=== PATIENT | male | born 1955 ===

== ENCOUNTER 2023-02-22 05:00 | Day surgery (SDC) | payer OTHER | END 2023-02-22 13:30 | disposition home or self-care (01) | LOC: AMB-ENDOS 05:00 | PROVIDERS: ATTEND Surgery | DX: K63.5 Polyp of colon (principal); K62.1 Rectal polyp; K57.30 Diverticulosis of large intestine without perforation or abscess without bleeding; D12.7 Benign neoplasm of rectosigmoid junction; Z20.822 Contact with and (suspected) exposure to COVID-19 ==

== ENCOUNTER 2024-12-10 08:00 | Outpatient (CLI) | payer OTHER ==
[~2024-12-10] VITALS: Ht 170.2 cm; Wt 66.7 kg
[2024-12-10 10:11] LABS: URINE APPEARANCE Clear; URINE BILIRRUBIN Negative (NEGATIVE); URINE BLOOD Negative; URINE COLOR Yellow; URINE GLUCOSE Negative (NEGATIVE); URINE KETONE Negative (NEGATIVE); URINE LEUKOCYTE Negative; URINE NITRATE Negative; URINE PROTEIN 30 (NEGATIVE); URINE UROBILINOGEN 0.2 E.U./dl
[2024-12-10 10:12] LABS: URINE EPITHELIAL CELLS 1.8 uL (0.0-38.8)
[2024-12-10 10:12] LABS: BASO % 0.4 % (0.1-1.2); EOS # 0.09 (0.04-0.54); EOS % 1.3 % (0.7-7.0); LYMPH # 0.87 (1.18-3.74); LYMPH % 13.0 % (19.3-53.1); MEAN PLATELET VOLUME 9.30 fl (9.4-12.4); MONO # 0.67 (0.24-0.82); MONO % 10.0 % (4.7-12.5); NEUT # 5.02 (1.56-6.13); NEUT % 74.9 % (34.0-71.1); RED CELL DISTRIBUTION WIDTH 12.8 % (11.6-14.4)
[2024-12-10 10:13] LABS: URINE BACTERIA 3.6 uL (0.0-1933); URINE CAST 0.29 uL (0.0-1.40); URINE RBC 1.4 uL (0.0-20.8); URINE WBC 0.9 uL (0.0-23.2)
[2024-12-10 10:42] LABS: INR 1.11
[2024-12-10 11:17] LABS: ALT/SGPT 77.0 U/L (12-78); AST/SGOT 46.0 U/L (15-37); BILIRUBIN TOTAL 0.44 mg/dL (0.3-1.2); BUN CREA RATIO 17.0 (7.0-25.0); CREATININE SERUM 1.28 mg/dL (0.70-1.30); GFR 55.72; GLOBULINA 2.9 G/DL (2.4-3.5); GLUCOSE FASTING 131.0 mg/dL (65-100); OSMOLALITY SERUM 290.0 MOSM/KG (275-295)
[2024-12-10] MEDS ORDERED: ZESTRIL20 MG (14:22)
[2024-12-10] MEDS ORDERED: ZETIA10 MG (14:22)
[2024-12-10] MEDS ORDERED: GLIPIZIDE XL10 MG (14:22)
[2024-12-10] MEDS ORDERED: CARVEDILOL 12.5 (14:23)
[2024-12-10] MEDS ORDERED: SIMVASTATIN 40MG (14:23)
[2024-12-10] MEDS ORDERED: ECOTRIN325 M1 (14:24)
[2024-12-10] MEDS ORDERED: [UNRECOGNIZED DRUG - OTHER] (14:24)
[2024-12-10] MEDS ORDERED: TAMSULOSIN HCL0.4 MG (14:24)
== END 2024-12-10 08:15 | disposition home or self-care (01) ==
LOC: LAB 08:00 → SURG 12-18 09:00 → EDSTATUS 12-18 09:00 → SURG 12-18 12:30
PROVIDERS: ATTEND Surgery
DX: D12.8 Benign neoplasm of rectum (principal); K62.6 Ulcer of anus and rectum; K63.5 Polyp of colon; K57.30 Diverticulosis of large intestine without perforation or abscess without bleeding; D12.5 Benign neoplasm of sigmoid colon; D12.7 Benign neoplasm of rectosigmoid junction; D12.4 Benign neoplasm of descending colon; K62.89 Other specified diseases of anus and rectum